=== PATIENT | male | born 1940 | race Caucasian/White ===

== ENCOUNTER 2020-04-16 23:55 | Inpatient (IN) | payer MEDICARE, SELFPAY ==
[2020-04-22 02:20] VITALS: BMI 23.7
[2020-04-23] VITALS (15 sets, daily range): BP systolic 105–174; BP diastolic 62–89; PULSE 80–94; RESP 16–24; TEMP 35.6–37.4; O2SAT 94–100
[2020-04-23 06:30] LABS: INTERNATIONAL NORM RATIO 1.5 (0.9-1.1); Prothrombin Time 17.3 SEC (10.8-13.0)
[2020-04-23 06:37] LABS: MANUAL DIFF FLAG NO
[2020-04-23 06:45] LABS: Basophils Percent Auto 0.1 % (0-2); Eosinophils Percent Auto 0.1 % (0-4); Hematocrit 22.8 % (42-52); Imm Gran Abs Auto 0.14 X10*3/uL (0.00-0.03); Imm Gran Pct Auto 0.9 % (0.0-0.4); Lymphocytes Absolute Auto 1.9 X10*3/uL (1.2-4.9); Lymphocytes Percent Auto 11.6 % (20-40); Mean Corpuscular HGB Conc 29.8 g/dl (31.0-36.0); Mean Corpuscular Hemoglobin 25.5 pg (27.0-33.0); Mean Corpuscular Volume 85.4 fL (80-98); Mean Platelet Volume 10.6 fL (9.4-12.4); Monocytes Absolute Auto 1.1 X10*3/uL (0.1-1.2); Monocytes Percent Auto 6.6 % (2-11); NRBC Pct Auto 0.2 /100WBC (0.0-0.2); Neutrophils Absolute Auto 13.2 X10*3/uL (2.0-8.3); Neutrophils Percent Auto 80.7 % (45-73); Platelet Count 269 X10*3/uL (160-400); Red Blood Count 2.67 X10*6/uL (4.60-5.80); Red Cell Distribution Width 16.5 % (11.0-16.0); White Blood Count 16.3 X10*3/uL (4.8-10.8)
[2020-04-23 07:20] LABS: Hemoglobin 6.8 g/dl (14.0-18.0)
[2020-04-23] MEDS: 0.9 % Sodium Chloride Flush 3 ML SYRINGE 2 ML IVFLUSH ×2 (08:10)
--- NOTE | 2020-04-23 08:38 | P.CDIC_ITS ---
CDI Concurrent Query Service Date: 04/24/20 Documentation Clarification: Please clarify if you are treating a proba ble/suspected/likely or confirmed: Pressure injury Stage 2 b/l buttocks/coccyx and middle scrotum poa Please specify if known or other other Provider Response: Other Other Diagnosis: other PLEASE DO NOT DELETE/MODIFY EXISTING CONTENT Additional information is needed in order to code to the highest accuracy and appropriate Severity of Illness (SOI). Please clarify the information noted below in your progress notes and discharge summary. Risk Factors/Clinical Indicators/Treatments Skin integrity noted open wound Stage 2 bilateral buttocks, coccyx and middle scrotum. FTT, cancer, anorexia, mild malnutrition. Reposition Q2H, air loss bed. CDS: Alexandra oHdge CCS, CDIS Contact Number: [phone] Please Review the information above and exercise your independent professional judgment in responding to the query. If you concur, pleas document in the PROGRESS NOTES and DISCHARGE SUMMARY. If you do not agree with the query, please document in the query above. Stage 2 pressure ulcer THIS QUERY IS PART OF THE PERMANENT MEDICAL RECORD
[2020-04-23] MEDS: Phytonadione (Vit K1) 10 MG in 0.9 % Sodium Chloride 50 ML 51 MG IV (11:13)
--- NOTE | 2020-04-23 13:03 | P.PNIM_ITS ---
Subjective Subjective Date of Service: 04/23/20 Interval History: Seen and examined this AM Denies abdominal pain Cardiovascular Cardiovascular: Denies chest pain and Denies dyspnea Respiratory Respiratory: Denies dyspnea Gastrointestinal Gastrointestinal: Denies abdominal pain Physical Exam Vital Signs and I&O and Narrative: Vital Signs and I&O: Vital Signs Temp 96.7 F L 04/23/20 12:19 Pulse 87 04/23/20 12:19 Resp 18 04/23/20 12:19 BP 124/68 04/23/20 12:19 Pulse Ox 98 04/23/20 12:19 Intake & Output 04/22/20 04/23/20 04/23/20 18:59 06:59 18:59 Intake Total 240 / 240 Output Total 150 / 150 Balance 90 / 90 Urine Output (Aver age ml/kg/hr) 0.19 0.19 Intake: Intake, Oral Kamryn unt 240 / 240 Output: Output, Urine Am ount 150 / 150 Other: Meal Refused No Breakfast % Eate n 50% Lunch % Eaten 50% Urine Color Yellow Body Mass Index 23.7 Const: General: cooperative, healthy appearing and no acute distress Eyes: Pupils: Equal, round and reactive pupils present Neck: Neck: Yes supple Chest: Chest palpation & inspection: normal inspection of the chest Resp: Effort & Inspection: normal respiratory effort and able to speak in complete sentences Auscultation: clear to auscultation bilaterally Cardio: Jugular venous distension: no JVD Rhythm: regular rhythm Heart sounds: S1 normal heart sound present and S2 normal heart sound present GI: Inspection: Yes normal to inspection Palpation (GI): Soft to palpation Auscultation: normal bowel sounds Skin: General skin exam: no rashes or lesions noted Neuro: Cranial nerves: Yes Equal, round and reactive pupils present Motor exam (neuro): Other motor observations present ( no motor deficit) Objective Data Current Medications Generic Name Dose Route Start Last Admin Trade Name Freq PRN Reason Stop Dose Admin Albuterol Sulfate 2.5 mg 04/23/20 00:01 Albuterol Sulfate (0.083%) 2.5 Mg/3 Ml Vial.Neb INHALE Q4H PRN Shortness of Breath Carbidopa/Levodopa 1 tab 04/23/20 09:00 04/23/20 08:09 Carbidopa/Levodopa 25/100 Tablet PO Not Given TID DION Donepezil HCl 10 mg 04/23/20 09:00 04/23/20 08:09 Donepezil Hcl 10 Mg Tablet PO Not Given DAILY [facility] Gabapentin 400 mg 04/23/20 09:00 04/23/20 08:09 Gabapentin 400 Mg Capsule PO Not Given TID [facility] Megestrol Acetate 400 mg 04/23/20 09:00 04/23/20 08:11 Megestrol Acetate 400 Mg/10 Ml Oral.Susp PO Not Given BID [facility] Oxycodone HCl 5 mg 04/23/20 00:01 Oxycodone Hcl Immed Release 5 Mg Tablet PO Q6H PRN Pain, Severe (Pain Scale 7-10) Sodium Chloride 2 ml 04/23/20 09:00 04/23/20 08:10 0.9 % Sodium Chloride Flush 3 Ml Syringe IVFLUSH 2 ml QSHIFT [facility] Administration Tamsulosin HCl 0.4 mg 04/23/20 17:00 Tamsulosin Hcl 0.4 Mg Capsule PO DAILY@1700 [facility] Labs CBC & Chem 7: 04/23/20 07:00 04/22/20 06:26 Labs: Laboratory Results - last 24 hr 04/16/20 04/17/20 04/20/20 20:56 05:59 06:23 MCV MCH MCHC RDW RDW Coeff of Tee Plt Count MPV Immature Gran % (Auto) Neut % (Auto) Lymph % (Auto) [place] % (Auto) Eos % (Auto) Baso % (Auto) Neut # (Auto) Lymph # (Auto) [place] # (Auto) Eos # (Auto) Baso # (Auto) Abs Immat Gran (auto) Absolute Lymphs (auto) Absolute Monos (auto) Absolute Eos (auto) Absolute Basos (auto) Absolute Nucleated RBC Nucleated RBC % (auto) Absolute Neutrophils Smear Tech's Comments PT INR Bicarbonate 25 Anion Gap 14 Estimated Creat Clear 68.5 Est GFR (Non-Af Amer) > 60 Random Glucose 110 Fasting Glucose Calcium 8.0 L Total Bilirubin 0.9 Direct Bilirubin 0.5 AST 41 H ALT 9 Alkaline Phosphatase 453 H Lactate Dehydrogenase 398 H Total Protein 5.6 L Albumin 2.5 L CA 19-9 Antigen 1006 H CSF Herpes I DNA (PCR) Not Detected CSF Herpes II DNA (PCR) Not Detected Stool Occult Blood Body Source CSF Blood Type Antibody Screen Crossmatch 09/04/20/20 04/20/20 06:23 06:23 19:04 MCV 87.0 MCH 25.4 L MCHC 29.2 L RDW RDW Coeff of Tee 16.1 H Plt Count 326 MPV 9.7 Immature Gran % (Auto) 0.9 H Neut % (Auto) 77.9 H Lymph % (Auto) 12.4 L [place] % (Auto) 8.6 Eos % (Auto) 0.0 Baso % (Auto) 0.2 Neut # (Auto) Lymph # (Auto) [place] # (Auto) Eos # (Auto) Baso # (Auto) Abs Immat Gran (auto) 0.17 H Absolute Lymphs (auto) 2.4 Absolute Monos (auto) 1.7 H Absolute Eos (auto) 0.0 Absolute Basos (auto) 0.0 Absolute Nucleated RBC 0.020 H Nucleated RBC % (auto) 0.1 Absolute Neutrophils 15.1 H Smear Tech's Comments VERIFIED PT 17.9 H INR 1.5 H Bicarbonate Anion Gap Estimated Creat Clear Est GFR (Non-Af Amer) Random Glucose Fasting Glucose Calcium Total Bilirubin Direct Bilirubin AST ALT Alkaline Phosphatase Lactate Dehydrogenase Total Protein Albumin CA 19-9 Antigen CSF Herpes I DNA (PCR) CSF Herpes II DNA (PCR) Stool Occult Blood POS H Body Source Blood Type Antibody Screen Crossmatch 04/21/20 04/22/20 04/22/20 15:42 06:26 06:26 MCV 86.4 85.3 MCH 25.4 L 25.6 L MCHC 29.4 L 30.0 L RDW RDW Coeff of Tee 16.3 H 16.4 H Plt Count 319 284 MPV 9.8 10.3 Immature Gran % (Auto) 1.0 H Neut % (Auto) 83.0 H Lymph % (Auto) 9.6 L [place] % (Auto) 6.3 Eos % (Auto) 0.0 Baso % (Auto) 0.1 Neut # (Auto) Lymph # (Auto) [place] # (Auto) Eos # (Auto) Baso # (Auto) Abs Immat Gran (auto) 0.20 H Absolute Lymphs (auto) 1.9 Absolute Monos (auto) 1.3 H Absolute Eos (auto) 0.0 Absolute Basos (auto) 0.0 Absolute Nucleated RBC 0.030 H 0.020 H Nucleated RBC % (auto) 0.2 0.1 Absolute Neutrophils 16.6 H Smear Tech's Comments PT INR Bicarbonate 26 Anion Gap 13 Estimated Creat Clear 79.0 Est GFR (Non-Af Amer) > 60 Random Glucose Fasting Glucose 128 H Calcium 8.0 L Total Bilirubin Direct Bilirubin AST ALT Alkaline Phosphatase Lactate Dehydrogenase Total Protein Albumin CA 19-9 Antigen CSF Herpes I DNA (PCR) CSF Herpes II DNA (PCR) Stool Occult Blood Body Source Blood Type Antibody Screen Crossmatch 04/23/20 04/23/20 04/23/20 05:56 05:56 07:00 MCV 85.4 Not Rcvd MCH 25.5 L Not Rcvd MCHC 29.8 L Not Rcvd RDW 16.5 H RDW Coeff of Tee Not Rcvd Plt Count 269 Not Rcvd MPV 10.6 Not Rcvd Immature Gran % (Auto) 0.9 H Neut % (Auto) 80.7 H Lymph % (Auto) 11.6 L [place] % (Auto) 6.6 Eos % (Auto) 0.1 Baso % (Auto) 0.1 Neut # (Auto) 13.2 H Lymph # (Auto) 1.9 [place] # (Auto) 1.1 Eos # (Auto) 0.0 Baso # (Auto) 0.0 Abs Immat Gran (auto) 0.14 H Absolute Lymphs (auto) Absolute Monos (auto) Absolute Eos (auto) Absolute Basos (auto) Absolute Nucleated RBC 0.030 H Not Rcvd Nucleated RBC % (auto) 0.2 Not Rcvd Absolute Neutrophils Smear Tech's Comments PT 17.3 H INR 1.5 H Bicarbonate Anion Gap Estimated Creat Clear Est GFR (Non-Af Amer) Random Glucose Fasting Glucose Calcium Total Bilirubin Direct Bilirubin AST ALT Alkaline Phosphatase Lactate Dehydrogenase Total Protein Albumin CA 19-9 Antigen CSF Herpes I DNA (PCR) CSF Herpes II DNA (PCR) Stool Occult Blood Body Source Blood Type Antibody Screen Crossmatch 04/23/20 04/23/20 07:00 11:15 MCV MCH MCHC RDW RDW Coeff of Tee Plt Count MPV Immature Gran % (Auto) Neut % (Auto) Lymph % (Auto) [place] % (Auto) Eos % (Auto) Baso % (Auto) Neut # (Auto) Lymph # (Auto) [place] # (Auto) Eos # (Auto) Baso # (Auto) Abs Immat Gran (auto) Absolute Lymphs (auto) Absolute Monos (auto) Absolute Eos (auto) Absolute Basos (auto) Absolute Nucleated RBC Nucleated RBC % (auto) Absolute Neutrophils Smear Tech's Comments PT Not Rcvd INR Not Rcvd Bicarbonate Anion Gap Estimated Creat Clear Est GFR (Non-Af Amer) Random Glucose Fasting Glucose Calcium Total Bilirubin Direct Bilirubin AST ALT Alkaline Phosphatase Lactate Dehydrogenase Total Protein Albumin CA 19-9 Antigen CSF Herpes I DNA (PCR) CSF Herpes II DNA (PCR) Stool Occult Blood Body Source Blood Type A Positive Antibody Screen NEGATIVE Crossmatch See Detail Progress Note: A&P (1) Liver mass: Status: Acute Assessment and Plan: 80 yo M who has been admitted several times over the last month or so to [facility] for multiple issues. He was initially admitted on 04/01/2020 after a fall and slurred speech. During that admisison he was worked up for his neurological findings and was initiated on Sinemet as his symptoms were felt to be Parkinsonism. He was discharged on 04/03/2020 only to return in less than 12 hours from SNF for respiratory symptoms and fever. During that admission he was treated for aspiration pneumonia. He also had abnormal LFTs during that admission and underwent work up with an ultrasound which showed no cholelithiasis but concern over acalculous cholecystitis was raised and he subsequently was evaluated by General surgery and felt that he unlikely had acalculous cholecystitis. His LFTs were downtrending and were attributed to his acute infection. He now presents with generalized weakness and increase leukocytosis. His work up in the ED which included an LP (not suggestive of bacterial meningitis ) and CT abd/pelvis with contrast which showed a liver mass vs abscess of 4.5 cm. He was admitted for further work up. 1. 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 CT chest shows no evidence of mets. Undergoing EGD today 2. Abnormal LFTs likely from neoplasic process--LFTS are generally low, other high ALKP 3. Anemia-- transfuse 2 units prbcs check h/h probably chronic blood loss 4. HyperK resolved monitor 5. History of recently diagnosed Parkinsons continue Sinemet 6. Dementia Aricept 7. Leukocytosis--likely reactive 8. Mild Protein calory malnutrition/anorexia supplements
[2020-04-23] MEDS: Morphine Sulfate 2 MG/ML CARTRIDGE IVPUSH (13:42)
--- NOTE | 2020-04-23 14:30 | HO.ANESPROP2 ---
[facility] Past Medical History Medical History (Updated 04/23/20 @ 14:26 by Sumaya Lomax RN) Anemia Anorexia Dementia Hyperkalemia Leukocytosis Malnutrition Parkinson disease Meds Allergies Allergy/AdvReac Type Severity Reaction Status Date / Time No Known Allergies Allergy Unknown UNKNOWN Unverified 04/09/20 15:03 [NO KNOWN ALLERGIES] Home Medications Medication Instructions Recorded Confirmed Type acetaminophen 650 mg PO Q4H PRN 04/22/20 04/22/20 History albuterol sulfate 2.5 mg INHALATION Q4H PRN 04/22/20 04/22/20 History aspirin 81 mg PO 04/22/20 History quhgxqnzqm-xhnmffxmkucca-wcfy 1 tab PO DAILY PRN 04/22/20 04/22/20 History [Fioricet] carbidopa-levodopa 1 tab PO TID 04/22/20 04/22/20 History cholecalciferol (vitamin D3) 50 mcg PO DAILY 04/22/20 04/22/20 History diazepam 5 mg PO TID PRN 04/22/20 04/22/20 History diclofenac sodium [Voltaren] 1 ea TOPICAL TID PRN 04/22/20 04/22/20 History donepezil 10 mg PO DAILY 04/22/20 04/22/20 History famotidine 40 mg PO BEDTIME 04/22/20 04/22/20 History gabapentin 400 mg PO TID 04/22/20 04/22/20 History magnesium hydroxide [Milk of 400 mg PO BEDTIME PRN 04/22/20 04/22/20 History Magnesia] oxycodone-acetaminophen [Percocet] 1 tab PO Q6H PRN 04/22/20 04/22/20 History rosuvastatin 40 mg PO DAILY 04/22/20 04/22/20 History tamsulosin 0.4 mg PO DAILY 04/22/20 04/22/20 History Exam Exam Date and Time: April 23, 2020 1430 Height,Weight and Vital Signs: Height 5 ft 6 in Weight 66.678 kg Last Vital Signs Temp 98.1 F 04/23/20 14:09 Pulse 93 04/23/20 14:09 Resp 18 04/23/20 14:09 BP 110/65 04/23/20 14:09 Pulse Ox 98 04/23/20 12:19 Pertinent Lab Results Pertinent Lab Results: Laboratory Tests 04/16/20 04/16/20 04/16/20 18:30 18:30 18:30 WBC 18.9 H RBC 3.53 L D Hgb 9.3 L Hct 31.4 L D MCV 89.0 MCH 26.3 L MCHC 29.6 L RDW RDW Coeff of Tee 15.9 Plt Count 554 H MPV 9.3 L Immature Gran % (Auto) 0.8 H Neut % (Auto) 82.0 H Lymph % (Auto) 8.7 L Maverick % (Auto) 8.2 Eos % (Auto) 0.1 Baso % (Auto) 0.2 Neut # (Auto) Lymph # (Auto) Maverick # (Auto) Eos # (Auto) Baso # (Auto) Abs Immat Gran (auto) 0.15 H Absolute Lymphs (auto) 1.6 Absolute Monos (auto) 1.6 H Absolute Eos (auto) 0.0 Absolute Basos (auto) 0.0 Absolute Nucleated RBC 0.000 Nucleated RBC % (auto) 0.0 Absolute Neutrophils 15.5 H Smear Tech's Comments VERIFIED PT INR Sodium Cancelled Potassium Cancelled Chloride Cancelled Bicarbonate Cancelled Anion Gap Cancelled BUN Cancelled Creatinine Cancelled Estimated Creat Clear Cancelled Est GFR (Non-Af Amer) Cancelled Random Glucose Cancelled Fasting Glucose Lactic Acid 1.7 Calcium Magnesium Cancelled Total Bilirubin Cancelled Direct Bilirubin Cancelled AST Cancelled ALT Cancelled Alkaline Phosphatase Cancelled Lactate Dehydrogenase Total Protein Cancelled Albumin Cancelled Lipase Cancelled Carcinoembryonic Ag CA 19-9 Antigen Urine Color Urine Appearance Urine pH Ur Specific [place] Urine Protein Urine Glucose (UA) Urine Ketones Urine Blood Urine Nitrite Urine WBC (Auto) Urine RBC Urine WBC Ur Epithelial Cells Urine Crystals Urine Bacteria Urine Casts CSF Tube Number CSF Volume CSF Appearance CSF Color CSF WBC CSF RBC CSF Glucose CSF Total Protein CSF Herpes I DNA (PCR) CSF Herpes II DNA (PCR) Stool Occult Blood Body Source Blood Type Antibody Screen Crossmatch 04/16/20 04/16/20 04/16/20 18:30 19:59 19:59 WBC RBC Hgb Hct MCV MCH MCHC RDW RDW Coeff of Tee Plt Count MPV Immature Gran % (Auto) Neut % (Auto) Lymph % (Auto) Maverick % (Auto) Eos % (Auto) Baso % (Auto) Neut # (Auto) Lymph # (Auto) Maverick # (Auto) Eos # (Auto) Baso # (Auto) Abs Immat Gran (auto) Absolute Lymphs (auto) Absolute Monos (auto) Absolute Eos (auto) Absolute Basos (auto) Absolute Nucleated RBC Nucleated RBC % (auto) Absolute Neutrophils Smear Tech's Comments PT 24.4 H D INR 2.0 H Sodium 141 Potassium 5.3 H D Chloride 102 Bicarbonate 29 Anion Gap 15 BUN 15 D Creatinine 0.94 Estimated Creat Clear 54.6 Est GFR (Non-Af Amer) > 60 Random Glucose 116 H Fasting Glucose Lactic Acid Calcium Magnesium 2.3 Total Bilirubin 0.6 Direct Bilirubin 0.2 AST 54 H ALT 11 Alkaline Phosphatase 452 H D Lactate Dehydrogenase Total Protein 5.8 L Albumin 2.5 L Lipase 45 Carcinoembryonic Ag CA 19-9 Antigen Urine Color YELLOW Urine Appearance HAZY Urine pH 6.0 Ur Specific [place] >= 1.030 H Urine Protein 2+ H Urine Glucose (UA) NEG Urine Ketones NEG Urine Blood 3+ H Urine Nitrite NEG Urine WBC (Auto) NEG Urine RBC 30-49 H Urine WBC 0-2 Ur Epithelial Cells 1+ Urine Crystals URATE AMORPH 1+ Urine Bacteria NONE Urine Casts GRANULAR 15-29 CSF Tube Number CSF Volume CSF Appearance CSF Color CSF WBC CSF RBC CSF Glucose CSF Total Protein CSF Herpes I DNA (PCR) CSF Herpes II DNA (PCR) Stool Occult Blood Body Source Blood Type Antibody Screen Crossmatch 04/16/20 04/16/20 04/16/20 20:56 20:56 20:56 WBC RBC Hgb Hct MCV MCH MCHC RDW RDW Coeff of Tee Plt Count MPV Immature Gran % (Auto) Neut % (Auto) Lymph % (Auto) Maverick % (Auto) Eos % (Auto) Baso % (Auto) Neut # (Auto) Lymph # (Auto) Maverick # (Auto) Eos # (Auto) Baso # (Auto) Abs Immat Gran (auto) Absolute Lymphs (auto) Absolute Monos (auto) Absolute Eos (auto) Absolute Basos (auto) Absolute Nucleated RBC Nucleated RBC % (auto) Absolute Neutrophils Smear Tech's Comments PT INR Sodium Potassium Chloride Bicarbonate Anion Gap BUN Creatinine Estimated Creat Clear Est GFR (Non-Af Amer) Random Glucose Fasting Glucose Lactic Acid Calcium Magnesium Total Bilirubin Direct Bilirubin AST ALT Alkaline Phosphatase Lactate Dehydrogenase Total Protein Albumin Lipase Carcinoembryonic Ag CA 19-9 Antigen Urine Color Urine Appearance Urine pH Ur Specific [place] Urine Protein Urine Glucose (UA) Urine Ketones Urine Blood Urine Nitrite Urine WBC (Auto) Urine RBC Urine WBC Ur Epithelial Cells Urine Crystals Urine Bacteria Urine Casts CSF Tube Number 1 4 4 CSF Volume 0.5 1.0 CSF Appearance CLEAR CLEAR CLEAR, COLORLESS CSF Color COLORLESS COLORLESS CSF WBC 1 0 CSF RBC 391 5 CSF Glucose 78 CSF Total Protein 19.0 CSF Herpes I DNA (PCR) CSF Herpes II DNA (PCR) Stool Occult Blood Body Source Blood Type Antibody Screen Crossmatch 04/16/20 04/17/20 04/17/20 20:56 05:59 05:59 WBC 13.5 H RBC 2.88 L Hgb 7.5 L Hct 25.8 L MCV 89.6 MCH 26.0 L MCHC 29.1 L RDW RDW Coeff of Tee 16.0 Plt Count 398 D MPV 9.4 Immature Gran % (Auto) 0.9 H Neut % (Auto) 76.7 H Lymph % (Auto) 14.1 L Maverick % (Auto) 8.1 Eos % (Auto) 0.0 Baso % (Auto) 0.2 Neut # (Auto) Lymph # (Auto) Maverick # (Auto) Eos # (Auto) Baso # (Auto) Abs Immat Gran (auto) 0.12 H Absolute Lymphs (auto) 1.9 Absolute Monos (auto) 1.1 Absolute Eos (auto) 0.0 Absolute Basos (auto) 0.0 Absolute Nucleated RBC 0.000 Nucleated RBC % (auto) 0.0 Absolute Neutrophils 10.3 H Smear Tech's Comments PT INR Sodium 142 Potassium 4.2 D Chloride 106 Bicarbonate 28 Anion Gap 12 BUN 13 Creatinine 0.79 Estimated Creat Clear 65.0 Est GFR (Non-Af Amer) > 60 Random Glucose Fasting Glucose 106 H Lactic Acid Calcium 7.8 L Magnesium Total Bilirubin Direct Bilirubin AST ALT Alkaline Phosphatase Lactate Dehydrogenase Total Protein Albumin Lipase Carcinoembryonic Ag CA 19-9 Antigen Urine Color Urine Appearance Urine pH Ur Specific [place] Urine Protein Urine Glucose (UA) Urine Ketones Urine Blood Urine Nitrite Urine WBC (Auto) Urine RBC Urine WBC Ur Epithelial Cells Urine Crystals Urine Bacteria Urine Casts CSF Tube Number CSF Volume CSF Appearance CSF Color CSF WBC CSF RBC CSF Glucose CSF Total Protein CSF Herpes I DNA (PCR) Not Detected CSF Herpes II DNA (PCR) Not Detected Stool Occult Blood Body Source CSF Blood Type Antibody Screen Crossmatch 04/17/20 04/17/20 04/17/20 05:59 10:30 10:30 WBC 13.5 H RBC 2.93 L Hgb 7.7 L Hct 26.2 L MCV 89.4 MCH 26.3 L MCHC 29.4 L RDW RDW Coeff of Tee 15.8 Plt Count 409 H MPV 9.6 Immature Gran % (Auto) Neut % (Auto) Lymph % (Auto) Maverick % (Auto) Eos % (Auto) Baso % (Auto) Neut # (Auto) Lymph # (Auto) Maverick # (Auto) Eos # (Auto) Baso # (Auto) Abs Immat Gran (auto) Absolute Lymphs (auto) Absolute Monos (auto) Absolute Eos (auto) Absolute Basos (auto) Absolute Nucleated RBC 0.000 Nucleated RBC % (auto) 0.0 Absolute Neutrophils Smear Tech's Comments PT 28.3 H INR 2.4 H Sodium Potassium Chloride Bicarbonate Anion Gap BUN Creatinine Estimated Creat Clear Est GFR (Non-Af Amer) Random Glucose Fasting Glucose Lactic Acid Calcium Magnesium Total Bilirubin Direct Bilirubin AST ALT Alkaline Phosphatase Lactate Dehydrogenase Total Protein Albumin Lipase Carcinoembryonic Ag CA 19-9 Antigen 1006 H Urine Color Urine Appearance Urine pH Ur Specific [place] Urine Protein Urine Glucose (UA) Urine Ketones Urine Blood Urine Nitrite Urine WBC (Auto) Urine RBC Urine WBC Ur Epithelial Cells Urine Crystals Urine Bacteria Urine Casts CSF Tube Number CSF Volume CSF Appearance CSF Color CSF WBC CSF RBC CSF Glucose CSF Total Protein CSF Herpes I DNA (PCR) CSF Herpes II DNA (PCR) Stool Occult Blood Body Source Blood Type Antibody Screen Crossmatch 04/18/20 04/18/20 04/18/20 06:56 06:56 06:56 WBC 15.1 H RBC 3.09 L Hgb 8.2 L Hct 27.4 L MCV 88.7 MCH 26.5 L MCHC 29.9 L RDW RDW Coeff of Tee 16.0 Plt Count 369 MPV 9.5 Immature Gran % (Auto) 1.3 H Neut % (Auto) 79.2 H Lymph % (Auto) 10.7 L Maverick % (Auto) 8.5 Eos % (Auto) 0.1 Baso % (Auto) 0.2 Neut # (Auto) Lymph # (Auto) Maverick # (Auto) Eos # (Auto) Baso # (Auto) Abs Immat Gran (auto) 0.19 H Absolute Lymphs (auto) 1.6 Absolute Monos (auto) 1.3 H Absolute Eos (auto) 0.0 Absolute Basos (auto) 0.0 Absolute Nucleated RBC 0.000 Nucleated RBC % (auto) 0.0 Absolute Neutrophils 11.9 H Smear Tech's Comments PT 18.4 H D INR 1.5 H Sodium 140 Potassium 3.5 Chloride 104 Bicarbonate 26 Anion Gap 14 BUN 9 Creatinine 0.81 Estimated Creat Clear 63.4 Est GFR (Non-Af Amer) > 60 Random Glucose 109 Fasting Glucose Lactic Acid Calcium 8.0 L Magnesium Total Bilirubin 0.7 Direct Bilirubin 0.4 AST 44 H ALT 8 Alkaline Phosphatase 441 H Lactate Dehydrogenase Total Protein 5.4 L Albumin 2.5 L Lipase Carcinoembryonic Ag 997.80 CA 19-9 Antigen Urine Color Urine Appearance Urine pH Ur Specific [place] Urine Protein Urine Glucose (UA) Urine Ketones Urine Blood Urine Nitrite Urine WBC (Auto) Urine RBC Urine WBC Ur Epithelial Cells Urine Crystals Urine Bacteria Urine Casts CSF Tube Number CSF Volume CSF Appearance CSF Color CSF WBC CSF RBC CSF Glucose CSF Total Protein CSF Herpes I DNA (PCR) CSF Herpes II DNA (PCR) Stool Occult Blood Body Source Blood Type Antibody Screen Crossmatch 04/20/20 04/20/20 04/20/20 06:23 06:23 06:23 WBC 19.4 H RBC 3.07 L Hgb 7.8 L Hct 26.7 L MCV 87.0 MCH 25.4 L MCHC 29.2 L RDW RDW Coeff of Tee 16.1 H Plt Count 326 MPV 9.7 Immature Gran % (Auto) 0.9 H Neut % (Auto) 77.9 H Lymph % (Auto) 12.4 L Maverick % (Auto) 8.6 Eos % (Auto) 0.0 Baso % (Auto) 0.2 Neut # (Auto) Lymph # (Auto) Maverick # (Auto) Eos # (Auto) Baso # (Auto) Abs Immat Gran (auto) 0.17 H Absolute Lymphs (auto) 2.4 Absolute Monos (auto) 1.7 H Absolute Eos (auto) 0.0 Absolute Basos (auto) 0.0 Absolute Nucleated RBC 0.020 H Nucleated RBC % (auto) 0.1 Absolute Neutrophils 15.1 H Smear Tech's Comments VERIFIED PT 17.9 H INR 1.5 H Sodium 139 Potassium 3.7 Chloride 104 Bicarbonate 25 Anion Gap 14 BUN 10 Creatinine 0.75 Estimated Creat Clear 68.5 Est GFR (Non-Af Amer) > 60 Random Glucose 110 Fasting Glucose Lactic Acid Calcium 8.0 L Magnesium Total Bilirubin 0.9 Direct Bilirubin 0.5 AST 41 H ALT 9 Alkaline Phosphatase 453 H Lactate Dehydrogenase 398 H Total Protein 5.6 L Albumin 2.5 L Lipase Carcinoembryonic Ag CA 19-9 Antigen Urine Color Urine Appearance Urine pH Ur Specific [place] Urine Protein Urine Glucose (UA) Urine Ketones Urine Blood Urine Nitrite Urine WBC (Auto) Urine RBC Urine WBC Ur Epithelial Cells Urine Crystals Urine Bacteria Urine Casts CSF Tube Number CSF Volume CSF Appearance CSF Color CSF WBC CSF RBC CSF Glucose CSF Total Protein CSF Herpes I DNA (PCR) CSF Herpes II DNA (PCR) Stool Occult Blood Body Source Blood Type Antibody Screen Crossmatch 04/20/20 04/21/20 04/22/20 19:04 15:42 06:26 WBC 20.0 H RBC 2.87 L Hgb 7.3 L Hct 24.8 L MCV 86.4 MCH 25.4 L MCHC 29.4 L RDW RDW Coeff of Tee 16.3 H Plt Count 319 MPV 9.8 Immature Gran % (Auto) 1.0 H Neut % (Auto) 83.0 H Lymph % (Auto) 9.6 L Maverick % (Auto) 6.3 Eos % (Auto) 0.0 Baso % (Auto) 0.1 Neut # (Auto) Lymph # (Auto) Maverick # (Auto) Eos # (Auto) Baso # (Auto) Abs Immat Gran (auto) 0.20 H Absolute Lymphs (auto) 1.9 Absolute Monos (auto) 1.3 H Absolute Eos (auto) 0.0 Absolute Basos (auto) 0.0 Absolute Nucleated RBC 0.030 H Nucleated RBC % (auto) 0.2 Absolute Neutrophils 16.6 H Smear Tech's Comments PT INR Sodium 141 Potassium 3.3 Chloride 105 Bicarbonate 26 Anion Gap 13 BUN 15 Creatinine 0.65 Estimated Creat Clear 79.0 Est GFR (Non-Af Amer) > 60 Random Glucose Fasting Glucose 128 H Lactic Acid Calcium 8.0 L Magnesium Total Bilirubin Direct Bilirubin AST ALT Alkaline Phosphatase Lactate Dehydrogenase Total Protein Albumin Lipase Carcinoembryonic Ag CA 19-9 Antigen Urine Color Urine Appearance Urine pH Ur Specific [place] Urine Protein Urine Glucose (UA) Urine Ketones Urine Blood Urine Nitrite Urine WBC (Auto) Urine RBC Urine WBC Ur Epithelial Cells Urine Crystals Urine Bacteria Urine Casts CSF Tube Number CSF Volume CSF Appearance CSF Color CSF WBC CSF RBC CSF Glucose CSF Total Protein CSF Herpes I DNA (PCR) CSF Herpes II DNA (PCR) Stool Occult Blood POS H Body Source Blood Type Antibody Screen Crossmatch 04/22/20 04/23/20 04/23/20 06:26 05:56 05:56 WBC 18.2 H 16.3 H RBC 2.85 L 2.67 L Hgb 7.3 L 6.8 L* Hct 24.3 L 22.8 L MCV 85.3 85.4 MCH 25.6 L 25.5 L MCHC 30.0 L 29.8 L RDW 16.5 H RDW Coeff of Tee 16.4 H Plt Count 284 269 MPV 10.3 10.6 Immature Gran % (Auto) 0.9 H Neut % (Auto) 80.7 H Lymph % (Auto) 11.6 L Maverick % (Auto) 6.6 Eos % (Auto) 0.1 Baso % (Auto) 0.1 Neut # (Auto) 13.2 H Lymph # (Auto) 1.9 Maverick # (Auto) 1.1 Eos # (Auto) 0.0 Baso # (Auto) 0.0 Abs Immat Gran (auto) 0.14 H Absolute Lymphs (auto) Absolute Monos (auto) Absolute Eos (auto) Absolute Basos (auto) Absolute Nucleated RBC 0.020 H 0.030 H Nucleated RBC % (auto) 0.1 0.2 Absolute Neutrophils Smear Tech's Comments PT 17.3 H INR 1.5 H Sodium Potassium Chloride Bicarbonate Anion Gap BUN Creatinine Estimated Creat Clear Est GFR (Non-Af Amer) Random Glucose Fasting Glucose Lactic Acid Calcium Magnesium Total Bilirubin Direct Bilirubin AST ALT Alkaline Phosphatase Lactate Dehydrogenase Total Protein Albumin Lipase Carcinoembryonic Ag CA 19-9 Antigen Urine Color Urine Appearance Urine pH Ur Specific [place] Urine Protein Urine Glucose (UA) Urine Ketones Urine Blood Urine Nitrite Urine WBC (Auto) Urine RBC Urine WBC Ur Epithelial Cells Urine Crystals Urine Bacteria Urine Casts CSF Tube Number CSF Volume CSF Appearance CSF Color CSF WBC CSF RBC CSF Glucose CSF Total Protein CSF Herpes I DNA (PCR) CSF Herpes II DNA (PCR) Stool Occult Blood Body Source Blood Type Antibody Screen Crossmatch 04/23/20 04/23/20 04/23/20 07:00 07:00 11:15 WBC Not Rcvd RBC Not Rcvd Hgb Not Rcvd Hct Not Rcvd MCV Not Rcvd MCH Not Rcvd MCHC Not Rcvd RDW RDW Coeff of Tee Not Rcvd Plt Count Not Rcvd MPV Not Rcvd Immature Gran % (Auto) Neut % (Auto) Lymph % (Auto) Maverick % (Auto) Eos % (Auto) Baso % (Auto) Neut # (Auto) Lymph # (Auto) Maverick # (Auto) Eos # (Auto) Baso # (Auto) Abs Immat Gran (auto) Absolute Lymphs (auto) Absolute Monos (auto) Absolute Eos (auto) Absolute Basos (auto) Absolute Nucleated RBC Not Rcvd Nucleated RBC % (auto) Not Rcvd Absolute Neutrophils Smear Tech's Comments PT Not Rcvd INR Not Rcvd Sodium Potassium Chloride Bicarbonate Anion Gap BUN Creatinine Estimated Creat Clear Est GFR (Non-Af Amer) Random Glucose Fasting Glucose Lactic Acid Calcium Magnesium Total Bilirubin Direct Bilirubin AST ALT Alkaline Phosphatase Lactate Dehydrogenase Total Protein Albumin Lipase Carcinoembryonic Ag CA 19-9 Antigen Urine Color Urine Appearance Urine pH Ur Specific [place] Urine Protein Urine Glucose (UA) Urine Ketones Urine Blood Urine Nitrite Urine WBC (Auto) Urine RBC Urine WBC Ur Epithelial Cells Urine Crystals Urine Bacteria Urine Casts CSF Tube Number CSF Volume CSF Appearance CSF Color CSF WBC CSF RBC CSF Glucose CSF Total Protein CSF Herpes I DNA (PCR) CSF Herpes II DNA (PCR) Stool Occult Blood Body Source Blood Type A Positive Antibody Screen NEGATIVE Crossmatch See Detail Airway Neck ROM: Full Heart: RRR Lungs: CTA BL
[2020-04-23] MEDS: Lactated Ringers 1,000 ML 50 ML IVCONT ×2 (15:01→20:16)
--- NOTE | 2020-04-23 15:44 | PM.OP ---
Brief Operative Note Date of procedure: 04/23/20 Pre-op diagnosis: Metatstatic adenocarcinoma Post-op diagnosis: other (Erosive gastritis, duodenitis, hiatal hernia, erosive esophagitis) Procedure: EGD with biopsy Anesthesia: HENRI Surgeon: Karan Lorenzo Pathology: none sent (Gastric antrum) Condition: stable Disposition: PACU
--- NOTE | 2020-04-23 19:44 | PC.NURSE ---
first unit of blood completed infusion in surgery.
--- NOTE | 2020-04-23 20:11 | PC.NURSE ---
P-QUESTIONED DR. SHEA ON HOW MANY UNITS OF PRBC PATIENT SHOULD BE TRANSFUSED WITH I-STAT HH WAS ORDERED E-PRIMARY RN NOTIFIED,BASED ON HH RESULTS, WILL DECIDE
[2020-04-23] MEDS: Carbidopa/Levodopa 25/100 TABLET 1 TAB PO (20:12)
[2020-04-23] MEDS: Gabapentin 400 MG CAPSULE PO (20:12)
[2020-04-23] MEDS: Tamsulosin HCL 0.4 MG CAPSULE PO (20:12)
[2020-04-23] MEDS: Megestrol Acetate 400 MG/10 ML ORAL.SUSP PO (20:12)
[2020-04-23 20:39] LABS: Hematocrit 28.2 % (42-52); Hemoglobin 8.8 g/dl (14.0-18.0)
[2020-04-24] VITALS (11 sets, daily range): BP systolic 118–145; BP diastolic 66–91; PULSE 66–99; RESP 16–20; TEMP 36.1–37.8; O2SAT 94–100
[2020-04-24] MEDS: 0.9 % Sodium Chloride Flush 3 ML SYRINGE 2 ML IVFLUSH (00:42)
--- NOTE | 2020-04-24 02:43 | OP_ITS ---
SURGEON: Karan Lorenzo MD INDICATIONS: The patient presents for evaluation of metastatic adenocarcinoma of unknown primary. Full consent has been obtained from the patient's daughter and his , including risks of bleeding and perforation. PREOPERATIVE DIAGNOSIS: Metastatic adenocarcinoma of unknown primary. POSTOPERATIVE DIAGNOSIS: PROCEDURE PERFORMED: Esophagogastroduodenoscopy with biopsies. ESTIMATED BLOOD LOSS: COMPLICATIONS: ANESTHESIA: Monitored anesthesia care. ASSISTANTS: SPECIMENS: POSTOPERATIVE DIAGNOSES: Metastatic adenocarcinoma of unknown primary, erosive gastritis, duodenitis, hiatal hernia, and erosive esophagitis. DESCRIPTION OF PROCEDURE: The patient was placed in the left lateral decubitus position. The Olympus video gastroscope was passed in the posterior oropharynx and upper esophagus under direct vision. The scope was passed slowly into the distal esophagus. The gastroesophageal junction appeared at 35 cm. Extending from this to approximately 25 cm were areas of erosive esophagitis with some overlying exudate, but no sign of any Carly nor ulceration. There was no mass. The scope was entered into the stomach and there was a small hiatal hernia. The scope was advanced to pylorus and duodenum cannulated to the descending portion. There was some mild duodenitis in the duodenal bulb, but no evidence of any ulceration or mass. The scope was withdrawn back in the stomach. The gastric antrum had some areas of edema and erosions, but no ulceration, mass, nor any other abnormalities. There was good peristalsis. The scope was retroflexed visualizing the proximal stomach carefully, which appeared normal, without any sign of mass or ulceration. Scope was straightened and biopsies were obtained from the gastric antrum. Scope was withdrawn back to the esophagus. Other than the esophagitis, there were no other abnormalities noted. The scope was withdrawn from the patient. He tolerated the procedure well and was returned to recovery area in stable condition. IMPRESSION: 1. Erosive gastritis, status post biopsy. 2. Duodenitis. 3. Hiatal hernia. 4. Erosive esophagitis. PLAN: The results of biopsy will be checked. He will start omeprazole 20 mg b.i.d. As I did review with his daughter on the phone prior to the procedure, I do not think he would be a good candidate for colonoscopy both in regard to handling the bowel prep and the procedure itself, given his overall condition. Further workup will be as per the Oncology service. His diet will be advanced. This has been discussed with his family again. MD IVETT Andrew/GRIFFIN / [phone]
[2020-04-24 06:26] LABS: MANUAL DIFF FLAG NO
[2020-04-24 06:30] LABS: Basophils Percent Auto 0.1 % (0-2); Hematocrit 27.4 % (42-52); Hemoglobin 8.7 g/dl (14.0-18.0); Imm Gran Abs Auto 0.36 X10*3/uL (0.00-0.03); Imm Gran Pct Auto 2.1 % (0.0-0.4); Lymphocytes Absolute Auto 1.7 X10*3/uL (1.2-4.9); Lymphocytes Percent Auto 9.8 % (20-40); Mean Corpuscular HGB Conc 31.8 g/dl (31.0-36.0); Mean Corpuscular Hemoglobin 26.6 pg (27.0-33.0); Mean Corpuscular Volume 83.8 fL (80-98); Mean Platelet Volume 10.8 fL (9.4-12.4); Monocytes Absolute Auto 0.9 X10*3/uL (0.1-1.2); Monocytes Percent Auto 5.1 % (2-11); Neutrophils Percent Auto 82.9 % (45-73); Platelet Count 219 X10*3/uL (160-400); Red Blood Count 3.27 X10*6/uL (4.60-5.80); Red Cell Distribution Width 16.2 % (11.0-16.0); White Blood Count 16.9 X10*3/uL (4.8-10.8)
[2020-04-24] MEDS: Omeprazole 20 MG CAPSULE.DR PO ×2 (06:49→18:07)
[2020-04-24 06:55] LABS: NRBC Pct Auto 1.3 /100WBC (0.0-0.2)
[2020-04-24 07:06] LABS: Anion Gap 15 (12-20); Blood Urea Nitrogen 19 mg/dL (9-16); Calcium 7.7 mg/dL (8.4-10.2); Carbon Dioxide 25 mmol/L (22-29); Chloride 105 mmol/L (96-108); Creatinine Clr Calc Pharmacy 85.6; Estimated Glomerular Filt Rate > 60; Glucose Fasting 120 mg/dL (60-99); Potassium 3.7 mmol/l (3.3-5.1); Sodium 141 mmol/L (135-145)
[2020-04-24] MEDS: Megestrol Acetate 400 MG/10 ML ORAL.SUSP PO (11:08)
[2020-04-24] MEDS: Gabapentin 400 MG CAPSULE PO ×2 (11:08→14:21)
[2020-04-24] MEDS: Donepezil HCl 10 MG TABLET PO (11:08)
[2020-04-24] MEDS: Carbidopa/Levodopa 25/100 TABLET 1 TAB PO ×2 (11:09→14:21)
--- NOTE | 2020-04-24 13:04 | HO.POSTANES ---
Post Anesthesia Evaluation Post Anesthesia Evaluation Vital Signs: Vital Signs Temp Pulse Resp BP Pulse Ox 04/24/20 12:14 97.8 F 91 20 126/81 98 04/24/20 08:00 98.8 F 90 20 140/83 H 97 04/24/20 07:23 97 F 99 20 145/91 H 96 04/24/20 03:53 97.6 F 91 16 144/85 H 94 04/24/20 03:50 97.5 F 91 16 144/85 H 94 Anesthesia: Monitored Mental Status: Awake Pain Control: Satisfactory Nausea/Vomiting: None Hydration: Adequate Anesthesia-Related Issues: No Anes. Related Issues
--- NOTE | 2020-04-24 14:15 | MHC.CM.PN ---
SECONDARY TO CONVERSATION WITH PATIENT, HCP/DAUGHTER (IN ROOM) [facility] AND HOSPITALIST, REFERRALS SENT TO [facility] CONTRACTED FACILITIES. DAUGHTER IS AWARE THAT PATIENT IS READY FOR DISCHARGE, AND IMM 04/24 DELIVERED. COPY IN CHART DAUGHTER IS MADE AWARE THAT THE PROCESS FOR A BED OFFER AT [facility] IS A PROCESS OF ASSESSMENT, APPLICATION, AND REVIEW. CM DIRECTOR PLACED A CALL TO THE [facility] AND LEFT MESSAGE WITH ADMISSIONS TO INQUIRE OF APPROPRIATENESS FOR ADMISSION. DAUGHTER AND PATIENT AWARE AND CAN FOLLOW UP WITH THE FACILITY POST HOSPITAL DISCHARGE.
[2020-04-24] MEDS: oxyCODONE HCl Immed Release 5 MG TABLET PO (14:20)
--- NOTE | 2020-04-24 14:34 | MHC.CLN ---
F/U PO REMAINS 0-25% DIET RX: GRD/ M/S WITH HT LIQ-APPROPRIATE ENSURE AND ABDON IN PLACE TO PROMOTE WOUND HEALING MAYANK STARTED PER MD FOLLOWING
--- NOTE | 2020-04-24 14:36 | MHC.CM.PN ---
DAUGHTER THOMPSON (IN ROOM) MADE AWARE THAT PATIENT CAN FOLLOW UP WITH ONCOLOGY ONCE DISCHARGED FROM ACUTE CARE SETTING. SHE VERBALIZES COMPREHENSION AND AGREEMENT.
[2020-04-24] MEDS: Lactated Ringers 1,000 ML 50 ML IVCONT (14:53)
--- NOTE | 2020-04-24 16:38 | HO.PM.IMPN ---
Subjective Subjective Date of Service: 04/24/20 Interval History: Seen in f/u liver mets and generalized weakness, adult failure to thrive Review of Systems Gen: no fever Resp: no SOB Neuro: Seems confused Physical Exam Vital Signs and I&O and Narrative: Vital Signs and I&O: Vital Signs Temp 97.7 F 04/24/20 15:39 Pulse 89 04/24/20 15:39 Resp 20 04/24/20 15:39 BP 119/71 04/24/20 15:39 Pulse Ox 96 04/24/20 15:39 Const: General: cooperative, healthy appearing and no acute distress Eyes: Pupils: Equal, round and reactive pupils present Neck: Neck: Yes supple Chest: Chest palpation & inspection: normal inspection of the chest Resp: Effort & Inspection: normal respiratory effort and able to speak in complete sentences Auscultation: clear to auscultation bilaterally Cardio: Jugular venous distension: no JVD Rhythm: regular rhythm Heart sounds: S1 normal heart sound present and S2 normal heart sound present GI: Inspection: Yes normal to inspection Palpation (GI): Soft to palpation Auscultation: normal bowel sounds Skin: General skin exam: no rashes or lesions noted Neuro: Cranial nerves: Yes Equal, round and reactive pupils present Motor exam (neuro): Other motor observations present ( no motor deficit) Objective Data Current Medications Generic Name Dose Route Start Last Admin Trade Name Freq PRN Reason Stop Dose Admin Albuterol Sulfate 2.5 mg 04/23/20 00:01 Albuterol Sulfate (0.083%) 2.5 Mg/3 Ml Vial.Neb INHALE Q4H PRN Shortness of Breath Carbidopa/Levodopa 1 tab 04/23/20 09:00 04/24/20 14:21 Carbidopa/Levodopa 25/100 Tablet PO 1 tab TID DION Administration Donepezil HCl 10 mg 04/23/20 09:00 04/24/20 11:08 Donepezil Hcl 10 Mg Tablet PO 10 mg DAILY DION Administration Gabapentin 400 mg 04/23/20 09:00 04/24/20 14:21 Gabapentin 400 Mg Capsule PO 400 mg TID DION Administration Lactated Ringer's 1,000 mls @ 50 mls/hr 04/23/20 15:00 04/24/20 14:53 Lr IVCONT 50 mls/hr .Q20H DION Administration Megestrol Acetate 400 mg 10/01/20 09:00 04/24/20 11:08 Megestrol Acetate 400 Mg/10 Ml Oral.Susp PO 400 mg BID DION Administration Morphine Sulfate 2 mg 04/23/20 13:33 04/23/20 13:42 Morphine Sulfate 2 Mg/Ml Cartridge IVPUSH 2 mg Q4H PRN Administration Pain, Severe (Pain Scale 7-10) Omeprazole 20 mg 04/23/20 16:50 04/24/20 06:49 Omeprazole 20 Mg Capsule. PO 20 mg BID@0630,1630 DION Administration Oxycodone HCl 5 mg 04/23/20 00:01 04/24/20 14:20 Oxycodone Hcl Immed Release 5 Mg Tablet PO 5 mg Q6H PRN Administration Pain, Severe (Pain Scale 7-10) Sodium Chloride 2 ml 04/23/20 09:00 04/24/20 16:14 0.9 % Sodium Chloride Flush 3 Ml Syringe IVFLUSH Not Given QSHIFT [facility] Tamsulosin HCl 0.4 mg 04/23/20 17:00 04/23/20 20:12 Tamsulosin Hcl 0.4 Mg Capsule PO 0.4 mg DAILY@1700 DION Administration Labs CBC & Chem 7: 04/24/20 05:53 04/24/20 05:53 Assessment and Plan (1) Liver mass: Status: Acute Assessment and Plan: 80 yo M who has been admitted several times over the last month or so to [facility] [place] issues. He was initially admitted on 04/01/2020 after a fall and slurred speech. During that admisison he was worked up for his neurological findings and was initiated on Sinemet as his symptoms were felt to be Parkinsonism. He was discharged on 04/03/2020 only to return in less than 12 hours from SNF for respiratory symptoms and fever. During that admission he was treated for aspiration pneumonia. He also had abnormal LFTs during that admission and underwent work up with an ultrasound which showed no cholelithiasis but concern over acalculous cholecystitis was raised and he subsequently was evaluated by General surgery and felt that he unlikely had acalculous cholecystitis. His LFTs were downtrending and were attributed to his acute infection. He now presents with generalized weakness and increase leukocytosis. His work up in the ED which included an LP (not suggestive of bacterial meningitis ) and CT abd/pelvis with contrast which showed a liver mass vs abscess of 4.5 cm. He was admitted for further work up. 1. 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 CT chest shows no evidence of mets. Undergoing EGD 04/23 and showed gastritis. To follow up with Dr. Dean for further management if family wants to proceed with further testing . I had a lenghty face to face conversation with daughter and went over next step which will be discharge and follow up with Dr. Dean. She was agreable with the plan 2. Abnormal LFTs likely from neoplasic process--LFTS are generally low, other high ALKP 3. Anemia-- transfuse 2 units prbcs check h/h probably chronic blood loss, transfuse if Hct <7 4. HyperK resolved monitor 5. History of recently diagnosed Parkinsons continue Sinemet 6. Dementia Aricept 7. Leukocytosis--likely reactive 8. Mild Protein calory malnutrition/anorexia supplements 9. Stage 2 pressure ulcer--frequent turning and other management per protocol
[2020-04-24] MEDS: Tamsulosin HCL 0.4 MG CAPSULE PO (18:08)
[2020-04-24] MEDS: Acetaminophen 325 MG TABLET 650 MG PO (22:27)
[2020-04-25] VITALS (8 sets, daily range): BP systolic 94–139; BP diastolic 56–73; PULSE 72–104; RESP 16–24; TEMP 36–37; O2SAT 90–99
[2020-04-25] MEDS: Omeprazole 20 MG CAPSULE.DR PO ×2 (06:03→16:01)
[2020-04-25] MEDS: Lactated Ringers 1,000 ML 50 ML IVCONT (09:06)
[2020-04-25] MEDS: Carbidopa/Levodopa 25/100 TABLET 1 TAB PO ×3 (09:07→20:54)
[2020-04-25] MEDS: Gabapentin 400 MG CAPSULE PO ×3 (09:07→20:54)
[2020-04-25] MEDS: Megestrol Acetate 400 MG/10 ML ORAL.SUSP PO ×2 (09:07→20:54)
[2020-04-25] MEDS: Donepezil HCl 10 MG TABLET PO (09:07)
[2020-04-25 10:06] LABS: Hematocrit 28.1 % (42-52); Hemoglobin 8.9 g/dl (14.0-18.0); Mean Corpuscular HGB Conc 31.7 g/dl (31.0-36.0); Mean Corpuscular Volume 85.2 fL (80-98); Mean Platelet Volume 11.1 fL (9.4-12.4); NRBC Pct Auto 0.4 /100WBC (0.0-0.2); Platelet Count 231 X10*3/uL (160-400); Red Cell Distribution Width 16.8 % (11.0-16.0); White Blood Count 16.1 X10*3/uL (4.8-10.8)
[2020-04-25] MEDS: Tamsulosin HCL 0.4 MG CAPSULE PO (16:01)
--- NOTE | 2020-04-25 17:46 | P.PNIM_ITS ---
Subjective Subjective Interval History: Seen in f/u liver mets and generalized weakness, adult failure to thrive patient very weak unable to communicate, offers no complaints. Difficult to obtain review of system due to lethargy Physical Exam Vital Signs and I&O and Narrative: Vital Signs and I&O: Vital Signs Temp 97.2 F 04/25/20 16:00 Pulse 84 04/25/20 16:00 Resp 20 04/25/20 12:00 BP 100/61 04/25/20 16:00 Pulse Ox 95 04/25/20 16:00 Intake & Output 04/24/20 04/25/20 04/25/20 18:59 06:59 18:59 Intake Total 930.833 / 1240.833 310 / 1240.833 910.833 / 910.833 Output Total Balance 930.833 / 1239.833 309 / 1239.833 910.833 / 910.833 Urine Output (Aver age ml/kg/hr) 0.00 0.00 Intake: Intake, Oral [place] unt 310 / 310 Intake, IV Amoun t 930.833 / 930.833 910.833 / 910.833 Lactated Ringe rs 1,000 ml @ 50 930.833 / 930.833 910.833 / 910.833 mls/hr IVCONT .Q20H [facility] Rx#: [id number] Output: Output, Urine Am ount Other: Meal Refused No Yes NPO No Breakfast % Eate n 25% 25% Lunch % Eaten 0% Dinner % Eaten 25% Evening Snack % Eaten 25 Number of Incont inent Voids 2 Number of Unmeas ured Voids 2 Body Mass Index 23.7 Const: General: no acute distress and ill appearing Eyes: Pupils: Equal, round and reactive pupils present Neck: Neck: Yes supple Chest: Chest palpation & inspection: normal inspection of the chest Resp: Effort & Inspection: normal respiratory effort and able to speak in complete sentences Auscultation: clear to auscultation bilaterally Cardio: Jugular venous distension: no JVD Rhythm: regular rhythm Heart sounds: S1 normal heart sound present and S2 normal heart sound present GI: Inspection: Yes normal to inspection Palpation (GI): Soft to palpation Auscultation: normal bowel sounds Skin: General skin exam: no rashes or lesions noted Neuro: Cranial nerves: Yes Equal, round and reactive pupils present Motor exam (neuro): Other motor observations present ( no motor deficit) Objective Data Current Medications Generic Name Dose Route Start Last Admin Trade Name Freq PRN Reason Stop Dose Admin Acetaminophen 650 mg 04/24/20 21:39 04/24/20 22:27 Acetaminophen 325 Mg Tablet PO 650 mg Q6H PRN Administration Pain, Mild (Pain Scale 1-3) Albuterol Sulfate 2.5 mg 04/23/20 00:01 Albuterol Sulfate (0.083%) 2.5 Mg/3 Ml Vial.Neb INHALE Q4H PRN Shortness of Breath Carbidopa/Levodopa 1 tab 04/23/20 09:00 04/25/20 16:01 Carbidopa/Levodopa 25/100 Tablet PO 1 tab TID DION Administration Donepezil HCl 10 mg 04/23/20 09:00 04/25/20 09:07 Donepezil Hcl 10 Mg Tablet PO 10 mg DAILY DION Administration Gabapentin 400 mg 04/23/20 09:00 04/25/20 16:01 Gabapentin 400 Mg Capsule PO 400 mg TID DION Administration Lactated Ringer's 1,000 mls @ 50 mls/hr 04/23/20 15:00 04/25/20 09:06 Lr IVCONT 50 mls/hr .Q20H DION Administration Megestrol Acetate 400 mg 04/23/20 09:00 04/25/20 09:07 Megestrol Acetate 400 Mg/10 Ml Oral.Susp PO 400 mg BID DION Administration Morphine Sulfate 2 mg 04/23/20 13:33 04/23/20 13:42 Morphine Sulfate 2 Mg/Ml Cartridge IVPUSH 2 mg Q4H PRN Administration Pain, Severe (Pain Scale 7-10) Omeprazole 20 mg 04/23/20 16:50 04/25/20 16:01 Omeprazole 20 Mg Capsule.Dr PO 20 mg BID@0630,1630 DION Administration Oxycodone HCl 5 mg 04/23/20 00:01 04/24/20 14:20 Oxycodone Hcl Immed Release 5 Mg Tablet PO 5 mg Q6H PRN Administration Pain, Severe (Pain Scale 7-10) Sodium Chloride 2 ml 04/23/20 09:00 04/25/20 16:01 0.9 % Sodium Chloride Flush 3 Ml Syringe IVFLUSH Not Given QSHIFT [facility] Tamsulosin HCl 0.4 mg 04/23/20 17:00 04/25/20 16:01 Tamsulosin Hcl 0.4 Mg Capsule PO 0.4 mg DAILY@1700 [facility] Administration Labs CBC & Chem 7: 04/25/20 09:31 04/24/20 05:53 Labs: Laboratory Results - last 24 hr 04/25/20 09:31 MCV 85.2 MCH 27.0 MCHC 31.7 RDW 16.8 H Plt Count 231 MPV 11.1 Absolute Nucleated RBC 0.070 H Nucleated RBC % (auto) 0.4 H Assessment and Plan (1) Liver mass: Status: Acute Assessment and Plan: 80 yo M who has been admitted several times over the last month or to [facility] [place]. He was initially admitted on 04/01/2020 after a fall and slurred speech. During that admisison he was worked up for his neurological findings and was initiated on Sinemet as his symptoms were felt to be Parkinsonism. He was discharged on 04/03/2020 only to return in less than 12 hours from SNF for respiratory symptoms and fever. During that admission he was treated for aspiration pneumonia. He also had abnormal LFTs during that admission and underwent work up with an ultrasound which showed no cholelithiasis but concern over acalculous cholecystitis was raised and he subsequently was evaluated by General surgery and felt that he unlikely had acalculous cholecystitis. His LFTs were downtrending and were attributed to his acute infection. He now presents with generalized weakness and increase leukocytosis. His work up in the ED included an LP (not suggestive of bacterial meningitis ) and CT abd/pelvis with contrast which showed a liver mass vs abscess of 4.5 cm. He was admitted for further work up. 1. 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 CT chest shows no evidence of mets. Underwent EGD 04/23 and showed gastritis. To follow up with Dr. Dean for further management if family wants to proceed with further testing . Dr. Rodriguez had a lenghty face to face conversation with daughter and went over next step which will be discharge and follow up with Dr. Dean. She was agreeable with the plan 2. Abnormal LFTs likely from neoplasic process--LFTS are generally low, other high ALKP 3. Anemia-- status post 2 units prbcs hematocrit stable probably chronic blood loss, transfuse if Hct <7 4. HyperK resolved 5. History of recently diagnosed Parkinsons continue Sinemet 6. Dementia Aricept 7. Leukocytosis--likely reactive or related to liver process 8. Mild Protein calory malnutrition/anorexia encouraged supplement and continue IV fluid due to poor by mouth intake 9. Stage 2 pressure ulcer--frequent turning and other management per protocol
--- NOTE | 2020-04-25 19:15 | ECG_ITS ---
Test Reason : CHEST PX Blood Pressure : / mmHG Vent. Rate : 096 BPM Atrial Rate : 096 BPM P-R Int : 130 ms QRS Dur : 074 ms QT Int : 418 ms P-R-T Axes : 061 -40 244 degrees QTc Int : 528 ms Normal sinus rhythm Left axis deviation Low voltage QRS Possible Lateral infarct (cited on or before 28-MAR-2020) Inferior infarct , age undetermined ST & T wave abnormality, consider anterior ischemia Prolonged QT Abnormal ECG When compared with ECG of 16-APR-2020 18:20, Premature atrial complexes are no longer Present T wave inversion now evident in Inferior leads T wave inversion now evident in Anterolateral leads Referred By: Joey Jiang Electronically Signed By:LEXX SEPULVEDA
[2020-04-25] MEDS: Furosemide 20 MG/2 ML VIAL IVPUSH (20:03)
--- NOTE | 2020-04-25 20:54 | PM.EVENT ---
Event Note Event Note: DELIVERY NURSE called at approximately 8 pm due to chest pain. Patient seen and evaluated at the bedside. Reports that has a pain in the retrosternal area but is unable to communicate details. EKG done which shows T wave inversion in infero-lateral leads. STAT EKG to be obtained now. Daughter called at the listed number: [phone] (Radha) but unable to reach at present. To be transferred to [facility] at present, one dose of nitroglycerin to be given now and occult blood. Cardiology to be consulted in regards to anticoagulation at present.
[2020-04-25] MEDS: 0.9 % Sodium Chloride Flush 3 ML SYRINGE 2 ML IVFLUSH (20:55)
[2020-04-25 21:53] LABS: Troponin-I High Sensitivity 330.3 ng/L (<3.5-35.0)
[2020-04-26] VITALS (7 sets, daily range): BP systolic 78–131; BP diastolic 48–66; PULSE 82–102; RESP 14–90; TEMP 36.3–36.9; O2SAT 90–96
[2020-04-26] MEDS: Aspirin 81 MG TAB.CHEW PO (00:17)
--- NOTE | 2020-04-26 01:23 | PC.NURSE ---
PT TRANSFERRED FROM S/T ACUTE ONSET OF CHEST PAIN AND EKG CHANGES. PT ALSO HAD ELEVATED TROPONIN AFTER EVENT. BP LOW UPON ARRIVAL 88/52. MD NOTIFIED. PTS BP TRENDS LOW. NO INTERVENTIONS AT THIS TIME. PT ID SLERT BUT LETHARGIC. HE DENIES ANY CP, PALPS, SOB, NAUSEA, DIZZINESS, ETC AT THIS TIME. NEXT TROPONIN DUE AT 0300. PT IS ON 5L NC WITH A SAT IN THE LOW 90S. FINE CRACKLES NOTED AT L BASE. PT ALSO HAS PEDAL/ANKLE EDEMA L>R AND BILATERAL HAND EDEMA. IVF DC'D. PT GIVEN LOW DOSE ASPIRIN S/T CARDIAC EVENT. SR ON THE MONITOR WITH PVCS/PACS, RATE 80S-90S. SEQUENTIALS ON. AIR LOSS DEVICE IN PLACE FOR STAGE 2 PRESSURE ULCERS. [place] CATH APPLIED AND IS DRAINING CLEAR YELLOW URINE. CALL JONES IN REACH. BED ALARM ON. WILL CONTINUE TO MONITOR.
[2020-04-26] MEDS: Omeprazole 20 MG CAPSULE.DR PO (05:50)
[2020-04-26] MEDS: Donepezil HCl 10 MG TABLET PO (08:31)
[2020-04-26] MEDS: Gabapentin 400 MG CAPSULE PO (08:31)
[2020-04-26] MEDS: Megestrol Acetate 400 MG/10 ML ORAL.SUSP PO (08:31)
[2020-04-26] MEDS: Carbidopa/Levodopa 25/100 TABLET 1 TAB PO (08:31)
[2020-04-26] MEDS: 0.9 % Sodium Chloride Flush 3 ML SYRINGE 2 ML IVFLUSH ×3 (08:31→22:09)
[2020-04-26] MEDS: Morphine Sulfate 2 MG/ML CARTRIDGE IVPUSH ×2 (10:45→16:13)
--- NOTE | 2020-04-26 16:18 | P.PNIM_ITS ---
Subjective Subjective Interval History: Seen in f/u liver mets and generalized weakness, adult failure to thrive patient Last night complained of chest pain, EKG showed inferior lateral T- wave changes, troponin elevated 330 patient treated with aspirin and transferred to telemetry unit this a.m. patient very lethargic not communicating incontinent of both bowel and bladder. Review of systems Difficult to obtain due to lethargy Physical Exam Vital Signs and I&O and Narrative: Vital Signs and I&O: Vital Signs Temp 98.1 F 04/26/20 12:00 Pulse 102 H 04/26/20 12:00 Resp 16 04/26/20 12:00 BP 121/64 04/26/20 12:00 Pulse Ox 93 04/26/20 12:00 Intake & Output 04/25/20 04/26/20 04/26/20 18:59 06:59 18:59 Intake Total 910.833 / 778.791 4803 / 1000 Output Total 400 / 400 1 / 1 Balance 910.833 / 510.833 -400 / 510.833 999 / 999 Urine Output (Aver age ml/kg/hr) 0.50 0.00 Intake: Intake, Oral [place] unt 0 / 0 Intake, IV Amoun t 910.833 / 186.917 8988 / 1000 Lactated Ringe rs 1,000 ml @ 50 910.833 / 519.493 7634 / 1000 mls/hr IVCONT .Q20H [facility] Rx#: [id number] Output: Output, Urine Am ount 200 / 200 0 / 0 Output, Stool Am ount 1 / 1 Output, Urine Am ount (Catheter) 200 / 200 Condom 200 / 200 Other: Meal Refused Yes Breakfast % Eate n 0% Lunch % Eaten 0% Number of Incont inent Voids 1 Number of Incont inent Bowel 1 1 Movements Urine [place] Cath Urine Color Yellow Stool Color Fontanez Yellow Stool Consistenc y Pasty Loose Body Mass Index 23.7 Const: General: no acute distress and ill appearing Eyes: Pupils: Equal, round and reactive pupils present Neck: Neck: Yes supple Chest: Chest palpation & inspection: normal inspection of the chest Resp: Effort & Inspection: normal respiratory effort Auscultation: clear to auscultation bilaterally Cardio: Jugular venous distension: no JVD Rhythm: regular rhythm Heart sounds: S1 normal heart sound present and S2 normal heart sound present GI: Inspection: Yes normal to inspection Palpation (GI): Soft to palpation Auscultation: normal bowel sounds Skin: General skin exam: no rashes or lesions noted Neuro: Cranial nerves: Yes Equal, round and reactive pupils present Motor exam (neuro): Other motor observations present ( no motor deficit) Extrem: General: Yes edema Right lower extremity: edema Left lower extremity: edema Objective Data Current Medications Generic Name Dose Route Start Last Admin Trade Name Freq PRN Reason Stop Dose Admin Acetaminophen 650 mg 04/24/20 21:39 04/24/20 22:27 Acetaminophen 325 Mg Tablet PO 650 mg Q6H PRN Administration Pain, Mild (Pain Scale 1-3) Albuterol Sulfate 2.5 mg 04/23/20 00:01 Albuterol Sulfate (0.083%) 2.5 Mg/3 Ml Vial.Neb INHALE Q4H PRN Shortness of Breath Carbidopa/Levodopa 1 tab 04/23/20 09:00 04/26/20 16:09 Carbidopa/Levodopa 25/100 Tablet PO Not Given TID DION Donepezil HCl 10 mg 04/23/20 09:00 04/26/20 08:31 Donepezil Hcl 10 Mg Tablet PO 10 mg DAILY DION Administration Gabapentin 400 mg 04/23/20 09:00 04/26/20 16:09 Gabapentin 400 Mg Capsule PO Not Given TID DION Megestrol Acetate 400 mg 04/23/20 09:00 04/26/20 08:31 Megestrol Acetate 400 Mg/10 Ml Oral.Susp PO 400 mg BID DION Administration Morphine Sulfate 2 mg 04/23/20 13:33 04/26/20 16:13 Morphine Sulfate 2 Mg/Ml Cartridge IVPUSH 2 mg Q4H PRN Administration Pain, Severe (Pain Scale 7-10) Omeprazole 20 mg 04/23/20 16:50 04/26/20 16:09 Omeprazole 20 Mg Capsule.Dr PO Not Given BID@0630,1630 DION Oxycodone HCl 5 mg 04/23/20 00:01 04/24/20 14:20 Oxycodone Hcl Immed Release 5 Mg Tablet PO 5 mg Q6H PRN Administration Pain, Severe (Pain Scale 7-10) Sodium Chloride 2 ml 04/23/20 09:00 10/04/20 16:09 0.9 % Sodium Chloride Flush 3 Ml Syringe IVFLUSH 2 ml QSHIFT [facility] Administration Tamsulosin HCl 0.4 mg 04/23/20 17:00 04/26/20 16:10 Tamsulosin Hcl 0.4 Mg Capsule PO Not Given DAILY@1700 [facility] Labs CBC & Chem 7: 04/25/20 09:31 04/24/20 05:53 Labs: Laboratory Results - last 24 hr 04/25/20 04/26/20 20:58 03:00 Troponin I High Sens 330.3 H 321.0 H Assessment and Plan (1) Liver mass: Status: Acute Assessment and Plan: 80 yo M who has been admitted several times over the last month or to [facility] [place]. He was initially admitted on 04/01/2020 after a fall and slurred speech. During that admisison he was worked up for his neurological findings and was initiated on Sinemet as his symptoms were felt to be Parkinsonism. He was discharged on 04/03/2020 only to return in less than 12 hours from SNF for respiratory symptoms and fever. During that admission he was treated for aspiration pneumonia. He also had abnormal LFTs during that admission and underwent work up with an ultrasound which showed no cholelithiasis but concern over acalculous cholecystitis was raised and he subsequently was evaluated by General surgery and felt that he unlikely had acalculous cholecystitis. His LFTs were downtrending and were attributed to his acute infection. He now presents with generalized weakness and increase leukocytosis. His work up in the ED included an LP (not suggestive of bacterial meningitis ) and CT abd/pelvis with contrast which showed a liver mass vs abscess of 4.5 cm. He was admitted for further work up. chest pain with elevated troponin and EKG changes since patient has poor pr ognosis due to recently diagnosed adeno carcinoma, Parkinson's disease and now anemia case discussed with patient's daughter Radha Maloney and Rosie informed them about patient's poor prognosis and guarded condition they both agreed for hospice / comfort care, will discontinue IV fluid to avoid fluid retention and worsening edema will continue current medications and diet as tolerated, case discussed with Dr. Dean she agreed for care more towards comfort. case discussed with long term care social worker day will look in to safe disposition. 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 CT chest shows no evidence of mets. Underwent EGD 04/23 and showed gastritis. spokeTo follow up with Dr. Dean Due to patient's overall poor condition she does not feel patient is a candidate for immunotherapy and recommend care more towards comfort Anemia-- status post 2 units prbcs hematocrit stable,probably chronic blood loss, and due to cancer. HyperK resolved History of recently diagnosed Parkinsons continue Sinemet if tolerate by mouth Dementia Aricept If can tolerate by mouth Leukocytosis--likely reactive or related to liver process Mild Protein calorie malnutrition/anorexia feed as tolerated Stage 2 pressure ulcer--frequent turning and other management per protocol
--- NOTE | 2020-04-26 18:18 | P.ACPN_ITS ---
Advanced Care Planning Note Advanced Care Planning Note Time spent (in minutes): 16 Narrative: 80-year-old gentleman with past medical history significant for multiple hospitalization to [facility] in last 1 month recently admitted due to generalized weakness and leukocytosis his workup included lumbar puncture that showed no evidence of acute meningitis CT abdomen and pelvis showed liver mass the biopsy of liver mass showed the patient has adeno carcinoma with multiple other liver lesions patient has been doing poorly with poor by mouth intake generalized edema and developed chest pain since patient is not a candidate for aggressive treatment with advance cancer not a candidate for immunotherapy case discussed with patient's daughter healthcare proxy Radha Maloney and patient's Rosie and it was decided to treat patient with goal more towards comfort, therefore will place patient on morphine discontinue IV fluids continue feedings as tolerated. Problems Discussed (1) Liver mass:
[2020-04-27] VITALS (8 sets, daily range): BP systolic 102; BP diastolic 60; PULSE 112–128; RESP 18–34; TEMP 36.8; O2SAT 92; BMI 23.7
[2020-04-27] MEDS: Morphine Sulfate 2 MG/ML CARTRIDGE IVPUSH ×5 (07:37→23:27)
[2020-04-27] MEDS: 0.9 % Sodium Chloride Flush 3 ML SYRINGE 2 ML IVFLUSH ×2 (07:37→19:11)
--- NOTE | 2020-04-27 11:08 | P.PNIM_ITS ---
Subjective Subjective Interval History: Seen in f/u liver mets and generalized weakness, adult failure to thrive patient this a.m. lying in bed, eyes open not verbalizing, poor urinary output, noted to have pooling of secretions back of throat. review of system not obtainable due to significant weakness and lethargy Physical Exam Vital Signs and I&O and Narrative: Vital Signs and I&O: Vital Signs Temp 98.1 F 04/26/20 12:00 Pulse 102 H 04/26/20 12:00 Resp 18 04/27/20 11:05 BP 121/64 04/26/20 12:00 Pulse Ox 93 04/26/20 12:00 Intake & Output 04/26/20 04/27/20 04/27/20 18:59 06:59 18:59 Intake Total 1000 / 1000 0 / 1000 Output Total 1 / 1 Balance 999 / 999 0 / 999 Urine Output (Aver age ml/kg/hr) 0.00 0.00 0.00 Weight 66.7 kg Intake: Intake, Oral Kamryn unt 0 / 0 0 / 0 Intake, IV Amoun t 1000 / 1000 Lactated Ringe rs 1,000 ml @ 50 1000 / 1000 mls/hr IVCONT .Q20H [facility] Rx#: [id number] Output: Output, Urine Am ount 0 / 0 Output, Stool Am ount 1 / 1 Other: NPO Yes Breakfast % Eate n 0% 0% Lunch % Eaten 0% Number of Incont inent Voids 2 Number of Unmeas ured Voids 1 Number of Incont inent Bowel 1 Movements Stool Color Yellow Stool Consistenc y Loose Continuous Bladd er Irrigation Fluid - Amount I nstilled Condom 200 Body Mass Index 23.7 Const: General: no acute distress and ill appearing Neck: Neck: Yes supple Chest: Chest palpation & inspection: normal inspection of the chest Resp: Effort & Inspection: normal respiratory effort Cardio: Jugular venous distension: no JVD Rhythm: regular rhythm Heart sounds: S1 normal heart sound present and S2 normal heart sound present GI: Inspection: Yes normal to inspection Palpation (GI): Soft to palpation Auscultation: normal bowel sounds Skin: General skin exam: no rashes or lesions noted Extrem: General: Yes edema Right lower extremity: edema Left lower extremity: edema Objective Data Current Medications Generic Name Dose Route Start Last Admin Trade Name Freq PRN Reason Stop Dose Admin Acetaminophen 650 mg 04/24/20 21:39 04/24/20 22:27 Acetaminophen 325 Mg Tablet PO 650 mg Q6H PRN Administration Pain, Mild (Pain Scale 1-3) Albuterol Sulfate 2.5 mg 04/23/20 00:01 Albuterol Sulfate (0.083%) 2.5 Mg/3 Ml Vial.Neb INHALE Q4H PRN Shortness of Breath Carbidopa/Levodopa 1 tab 04/23/20 09:00 04/26/20 22:08 Carbidopa/Levodopa 25/100 Tablet PO Not Given TID [facility] Donepezil HCl 10 mg 04/23/20 09:00 04/26/20 08:31 Donepezil Hcl 10 Mg Tablet PO 10 mg DAILY DION Administration Gabapentin 400 mg 04/23/20 09:00 04/26/20 22:09 Gabapentin 400 Mg Capsule PO Not Given TID DION Morphine Sulfate 2 mg 04/26/20 16:45 04/27/20 11:05 Morphine Sulfate 2 Mg/Ml Cartridge IVPUSH 2 mg Q2H PRN Administration Pain, Severe (Pain Scale 7-10) Omeprazole 20 mg 04/23/20 16:50 04/27/20 06:19 Omeprazole 20 Mg Capsule.Dr PO Not Given BID@0630,1630 [facility] Scopolamine 1.5 mg 04/27/20 11:15 Scopolamine 1.5 Mg Patch.Td.3 TRANSDERMA Q72H [facility] Sodium Chloride 2 ml 04/23/20 09:00 04/27/20 07:37 0.9 % Sodium Chloride Flush 3 Ml Syringe IVFLUSH 2 ml QSHIFT [facility] Administration Tamsulosin HCl 0.4 mg 04/23/20 17:00 04/26/20 16:10 Tamsulosin Hcl 0.4 Mg Capsule PO Not Given DAILY@1700 [facility] Labs CBC & Chem 7: 04/25/20 09:31 04/24/20 05:53 Assessment and Plan (1) Liver mass: Status: Acute Assessment and Plan: 80 yo M who has been admitted several times over the last month or to [facility] for multiple issues. He was initially admitted on 04/01/2020 after a fall and slurred speech. During that admisison he was worked up for his neurological findings and was initiated on Sinemet as his symptoms were felt to be Parkinsonism. He was discharged on 04/03/2020 only to return in less than 12 hours from SNF for respiratory symptoms and fever. During that admission he was treated for aspiration pneumonia. He also had abnormal LFTs during that admission and underwent work up with an ultrasound which showed no cholelithiasis but concern over acalculous cholecystitis was raised and he subsequently was evaluated by General surgery and felt that he unlikely had acalculous cholecystitis. His LFTs were downtrending and were attributed to his acute infection. He now presents with generalized weakness and increase leukocytosis. His work up in the ED included an LP (not suggestive of bacterial meningitis ) and CT abd/pelvis with contrast which showed a liver mass vs abscess of 4.5 cm. He was admitted for further work up. 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 CT chest shows no evidence of mets. Underwent EGD 04/23 and showed gastritis. Due to patient's overall poor condition, oncologist Dr. Dean does not feel patient is a candidate for immunotherapy and recommend care more towards comfort case discussed with patient's daughter Radha and Rosie and they both agreed for goal of care towards comfort therefore patient placed on diet for comfort, morphine, scopolamine patch due to excessive secretions noted today. Chest pain with elevated troponin and EKG changes since patient has poor prognosis due to recently diagnosed adeno carcinoma, Parkinson's disease and now anemia no further treatment plan. Anemia-- status post 2 units prbcs hematocrit stable,probably chronic blood loss, and due to cancer , no further lab draws. HyperK resolved History of recently diagnosed Parkinsons will discontinue Sinemet unable to tolerate. Dementia unable to tolerate by mouth medications will DC Aricept. Leukocytosis--likely reactive or related to liver process Mild Protein calorie malnutrition/anorexia comfort feeds ordered Stage 2 pressure ulcer--frequent turning and other management per protocol
[2020-04-27] MEDS: Scopolamine 1.5 MG PATCH.TD.3 TRANSDERMA (11:12)
--- NOTE | 2020-04-27 12:50 | MHC.CM.PN ---
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
[2020-04-28] VITALS (8 sets, daily range): RESP 24–40
[2020-04-28] MEDS: 0.9 % Sodium Chloride Flush 3 ML SYRINGE 2 ML IVFLUSH ×4 (03:25→23:42)
[2020-04-28] MEDS: Morphine Sulfate 2 MG/ML CARTRIDGE IVPUSH ×5 (03:25→13:45)
--- NOTE | 2020-04-28 10:52 | PC.NURSE ---
[facility] contacted at 1051, spoke with Davy to open a case file. Case #[id number]. Case denied for organ and tissue recovery. Please call NEOB with [facility] to close case file. Thank you.
--- NOTE | 2020-04-28 16:04 | HO.PM.IMPN ---
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 daughter at bedside, no significant secretions or respiratory distress. Review of Systems Unobtainable patient not responsive Physical Exam Vital Signs and I&O and Narrative: Vital Signs and I&O: Vital Signs Temp 98.2 F 04/27/20 12:00 Pulse 112 H 04/27/20 19:20 Resp 36 H 04/28/20 13:45 BP 102/60 04/27/20 12:00 Pulse Ox 92 04/27/20 19:20 Intake & Output 04/27/20 04/28/20 04/28/20 18:59 06:59 18:59 Intake Total 0 / 0 0 / 0 Balance 0 / 0 0 / 0 Weight 66.7 kg Intake: Intake, Oral Roseau unt 0 / 0 Intake, Other Am ount 0 / 0 Other: NPO Yes Breakfast % Eate n 0% Lunch % Eaten 0% Number of Incont inent Voids 1 1 Body Mass Index 23.7 patient in bed appears tachypneic otherwise no distress no moaning, groaning noted. Neuro: Motor exam (neuro): no other ( no motor deficit) Objective Data Current Medications Generic Name Dose Route Start Last Admin Trade Name Freq PRN Reason Stop Dose Admin Acetaminophen 650 mg 04/24/20 21:39 04/24/20 22:27 Acetaminophen 325 Mg Tablet PO 650 mg Q6H PRN Administration Pain, Mild (Pain Scale 1-3) Albuterol Sulfate 2.5 mg 04/23/20 00:01 Albuterol Sulfate (0.083%) 2.5 Mg/3 Ml Vial.Neb INHALE Q4H PRN Shortness of Breath Donepezil HCl 10 mg 04/23/20 09:00 04/28/20 07:34 Donepezil Hcl 10 Mg Tablet PO Not Given DAILY DION Gabapentin 400 mg 04/23/20 09:00 04/28/20 07:35 Gabapentin 400 Mg Capsule PO Not Given TID DION Morphine Sulfate 2 mg 04/26/20 16:45 04/28/20 13:45 Morphine Sulfate 2 Mg/Ml Cartridge IVPUSH 2 mg Q2H PRN Administration Pain, Severe (Pain Scale 7-10) Scopolamine 1.5 mg 04/27/20 11:15 04/27/20 11:12 Scopolamine 1.5 Mg Patch.Td.3 TRANSDERMA 1.5 mg Q72H DION Administration Sodium Chloride 2 ml 04/23/20 09:00 04/28/20 07:34 0.9 % Sodium Chloride Flush 3 Ml Syringe IVFLUSH 2 ml QSHIFT DION Administration Labs CBC & Chem 7: 04/25/20 09:31 04/24/20 05:53 Assessment and Plan (1) Liver mass: Status: Acute Assessment and Plan: 80 yo M who has been admitted several times over the last month or to [facility] [place] for multiple issues. He was initially admitted on 04/01/2020 after a fall and slurred speech. During that admisison he was worked up for his neurological findings and was initiated on Sinemet as his symptoms were felt to be Parkinsonism. He was discharged on 04/03/2020 only to return in less than 12 hours from SNF for respiratory symptoms and fever. During that admission he was treated for aspiration pneumonia. He also had abnormal LFTs during that admission and underwent work up with an ultrasound which showed no cholelithiasis but concern over acalculous cholecystitis was raised and he subsequently was evaluated by General surgery and felt that he unlikely had acalculous cholecystitis. His LFTs were downtrending and were attributed to his acute infection. He now presents with generalized weakness and increase leukocytosis. His work up in the ED included an LP (not suggestive of bacterial meningitis ) and CT abd/pelvis with contrast which showed a liver mass vs abscess of 4.5 cm. He was admitted for further work up. 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 Due to tachypnea will give additional dose of morphine. Daughter Radha Maloney at bedside.
[2020-04-28] MEDS: Morphine Sulfate 2 MG/ML CARTRIDGE 3 MG IVPUSH ×2 (16:31→20:00)
[2020-04-29 03:59] VITALS: RESP 24
[2020-04-29 05:10] VITALS: RESP 24
[2020-04-29] MEDS: Morphine Sulfate 2 MG/ML CARTRIDGE 3 MG IVPUSH (05:10)
[2020-04-29 07:40] VITALS: PULSE 106; RESP 38
[2020-04-29] MEDS: 0.9 % Sodium Chloride Flush 3 ML SYRINGE 2 ML IVFLUSH ×2 (08:49→14:56)
[2020-04-29] MEDS: Morphine Sulfate 4 MG/ML CARTRIDGE 3 MG IVPUSH ×4 (08:54→18:37)
--- NOTE | 2020-04-29 10:26 | CONS_ITS ---
DATE OF SERVICE: 04/22/2020 REFERRING PHYSICIAN: Zach Rodriguez MD REASON FOR CONSULTATION: Adenocarcinoma of unknown primary. HISTORY OF PRESENT ILLNESS: The patient is an 80-year-old man, who was admitted to the hospital on April 16 with complaints of weakness and poor nutritional intake. He was found to have a high white blood cell count and CT scanning, which showed a liver mass or abscess. He underwent biopsy, which showed adenocarcinoma without definite unknown primary. He has been noted to be anemic and have Hemoccult-positive stools. 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 The patient provides no history. PAST MEDICAL HISTORY: 1. Dementia. 2. Parkinson disease. 3. Anxiety. 4. Gastroesophageal reflux disease. CURRENT MEDICATIONS: His current medication list is reviewed in the chart. ALLERGIES: THERE ARE NONE REPORTED. FAMILY HISTORY: Reviewed in electronic medical record. SOCIAL HISTORY: Reviewed in electronic medical record. REVIEW OF SYSTEMS: Not obtainable. PHYSICAL EXAMINATION: GENERAL: Reveals an elderly male, in no acute distress. VITAL SIGNS: Reviewed in electronic medical record and are stable. SKIN: Anicteric. HEENT: Shows no scleral icterus. NECK: Without lymphadenopathy or thyromegaly. LUNGS: Clear. HEART: Regular rate and rhythm. S1, S2. No murmur. ABDOMEN: Soft without focal masses or tenderness. Bowel sounds are present. No organomegaly is noted. EXTREMITIES: Without edema. LABORATORY DATA: Remarkable for white blood cell count of 18.2, hematocrit 24.3. Chemistries show elevations of his alkaline phosphatase, AST, and normal ALT. IMPRESSION: Adenocarcinoma of unknown primary with findings as above in the setting of anemia and Hemoccult-positive stools. I discussed with the patient and his daughter that endoscopy may be useful to rule out a gastric source for his tumor. This might help him in terms of possible treatments. We discussed endoscopy. The patient's daughter would wish to discuss this with her brother and they understand risks and benefits. We will tentatively plan for this tomorrow if they agree to proceed. At this point given his clinical condition, it seems unlikely, he would be able to tolerate a bowel prep for colonoscopy. Therefore, I would not recommend this at this time. Thanks for asking me to see him. I will follow him in the hospital with you. MD EULOGIO Whittaker/GRIFFIN / [phone]
[2020-04-29] MEDS: LORazepam 2 MG/ML VIAL 0.5 MG IVPUSH ×2 (10:37→15:01)
[2020-04-29 11:32] VITALS: RESP 20
--- NOTE | 2020-04-29 13:03 | MHC.CM.PN ---
per rounds pt is extremely poor
--- NOTE | 2020-04-29 15:38 | P.PNIM_ITS ---
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 daughter at bedside, no acute issues overnight. 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 Physical Exam Vital Signs and I&O and Narrative: Vital Signs and I&O: Vital Signs Temp 98.2 F 04/27/20 12:00 Pulse 106 H 04/29/20 07:40 Resp 20 04/29/20 11:32 BP 102/60 04/27/20 12:00 Pulse Ox 92 04/27/20 19:20 Intake & Output 04/28/20 04/29/20 04/29/20 18:59 06:59 18:59 Output Total 0 / 0 Balance 0 / 0 Urine Output (Aver age ml/kg/hr) 0.00 0.00 Output: Output, Urine Am ount 0 / 0 Other: NPO Yes Number of Incont inent Voids 1 1 Urine Color Dilute Body Mass Index 23.7 patient resting in bed, in no distress neck no JVD lungs no congestion extremities edematous Objective Data Current Medications Generic Name Dose Route Start Last Admin Trade Name Freq PRN Reason Stop Dose Admin Lorazepam 0.5 mg 04/29/20 08:19 04/29/20 15:01 Lorazepam 2 Mg/Ml Vial IVPUSH 0.5 mg Q2H PRN Administration Restlessness Morphine Sulfate 3 mg 04/29/20 11:26 04/29/20 13:28 Morphine Sulfate 4 Mg/Ml Cartridge IVPUSH 3 mg Q2H PRN Administration Shortness of Breath/Wheezing Scopolamine 1.5 mg 04/27/20 11:15 04/27/20 11:12 Scopolamine 1.5 Mg Patch.Td.3 TRANSDERMA 1.5 mg Q72H DION Administration Sodium Chloride 2 ml 04/23/20 09:00 04/29/20 14:56 0.9 % Sodium Chloride Flush 3 Ml Syringe IVFLUSH 2 ml QSHIFT DION Administration Labs CBC & Chem 7: 04/25/20 09:31 04/24/20 05:53 Assessment and Plan (1) Liver mass: Status: Acute (2) Comfort measures only status: Status: Acute (3) Adenocarcinoma of liver: Status: Acute (4) Stage II pressure ulcer: Status: Acute Assessment and Plan: 80 yo M who has been admitted several times over the last month or to [facility] for multiple issues. He was initially admitted on 04/01/2020 after a fall and slurred speech. During that admisison he was worked up for his neurological findings and was initiated on Sinemet as his symptoms were felt to be Parkinsonism. He was discharged on 04/03/2020 only to return in less than 12 hours from SNF for respiratory symptoms and fever. During that admission he was treated for aspiration pneumonia. He also had abnormal LFTs during that admission and underwent work up with an ultrasound which showed no cholelithiasis but concern over acalculous cholecystitis was raised and he subsequently was evaluated by General surgery and felt that he unlikely had acalculous cholecystitis. His LFTs were downtrending and were attributed to his acute infection. He now presents with generalized weakness and increase leukocytosis. His work up in the ED included an LP (not suggestive of bacterial meningitis ) and CT abd/pelvis with contrast which showed a liver mass vs abscess of 4.5 cm. He was admitted for further work up. 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
[2020-04-29 20:00] VITALS: RESP 16
[2020-04-30] VITALS (10 sets, daily range): RESP 14–35
[2020-04-30] MEDS: 0.9 % Sodium Chloride Flush 3 ML SYRINGE 2 ML IVFLUSH ×4 (00:17→23:50)
[2020-04-30] MEDS: Morphine Sulfate 4 MG/ML CARTRIDGE 3 MG IVPUSH ×4 (09:43→23:50)
[2020-04-30] MEDS: Scopolamine 1.5 MG PATCH.TD.3 TRANSDERMA (10:44)
--- NOTE | 2020-04-30 11:30 | P.EN_ITS ---
Event Note Event Note: Daily Progress Note S - not talking O respiratory distress and minimally responsive A/P 80 yo M admitted 04/16/2020 for generalized weakness, fever. Liver mass consistant with adenoCa, primary unknown. 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 Currently in some respiratory distress. Will give additional dose of morphin and change it to q1h continue other DATA PROCESSING OPERATOR measures. Will speak with family when they come in later today
[2020-04-30] MEDS: LORazepam 2 MG/ML VIAL 0.5 MG IVPUSH (18:40)
[2020-05-01] VITALS: RESP 22
--- NOTE | 2020-05-01 03:38 | PM.EVENT ---
Event Note Event Note: Notified by RN around 3:30 am that was not able to obtain any vitals signs on the patient. I evaluated the patient at the bedside, no breathing sounds identified, No pulse, EKG obtained shows asystole. 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 Time of determined as 3:33 am. Family to be notified now.
--- NOTE | 2020-08-21 07:13 | PM.DDS ---
Discharge Sum: Prov Provider Primary care physician: Renee Alegria MD Consults: 04/22/20 02:29 Consult to Hematology / Oncology Routine Consulting Provider: Neena Dean Reason for consultation: Liver Cancer Has provider been notified: Yes 04/22/20 02:36 Consult to Wound Care Provider Routine Consulting Provider: Harshad Ramsay 04/22/20 02:43 Consult to Infectious Diseases Routine Consulting Provider: Lamar Lazar Reason for consultation: liver abscess Has provider been notified: Yes 04/22/20 23:14 Consult to Gastroenterology Routine Consulting Provider: Karan Lorenzo Reason for consultation: Anemia, Occult Blood Positive, Malignance of No Primary, Advise and Treat Has provider been notified: Yes 04/23/20 12:50 Consult to Hematology / Oncology Routine Consulting Provider: Neena Dean Reason for consultation: liver mass Pronouncing clinician: Deedee Vasquez Discharge Sum: Diag Contributing Factors (1) Liver mass: (2) Anemia: (3) Elevated troponin I level: (4) Hyperkalemia: (5) Dementia: (6) Protein calorie malnutrition: (7) Stage II pressure ulcer: Discharge Sum: Summary Date and Time Date of admission: 04/16/20 23:55 Date of : 05/01/20 Time of : 03:33 Summary Details: This is a 80-year-old male who was admitted to the hospital several times over the last few months for multiple issues. Initially he was admitted after a fall and slurred speech on 04/01/2020. During that admission he was seen by Neurology and his symptoms were felt to be related to parkinsonism and so he was initiated on Sinemet. He was discharged on 04/03/2020 only to return less than 12 hours later for respiratory symptoms and pneumonia which was felt to be secondary to aspiration. He was appropriately treated during that admission. That hospitalization was complicated by abnormal right upper quadrant ultrasound which was concerning for acalculous cholecystitis. General surgery saw the patient and based off his clinical features felt that this was unlikely. He was subsequently discharged and readmitted thereafter at which point he underwent a CT scan of the abdomen and pelvis which showed a liver mass of 4.5 cm which was read by the radiologist as mass versus abscess. So, during this particular admission he underwent significant workup with multiple speciality is included including biopsies and endoscopies. Unfortunately, patient's condition continued to decline with worsening anemia, poor oral intake and malnutrition, elevated troponins with EKG changes felt to be likely an MT. given his age and acute and chronic comorbidities the discussion was held with the family and ultimately the patient was changed to comfort measures only status. He peacefully on 05/01/2020 at 0333. Additional Data Attending physician: Kam Rios MD
== END 2020-05-01 03:33 | disposition expired | DRG 435 ==
LOC: HO.S3 04-25 19:42 → HO.IMC 04-25 20:52
PROVIDERS: Hospitalist; Internal Medicine; Admitting Provider Internal Medicine; Emergency Provider Internal Medicine; PCP Internal Medicine; Visit Provider Family Medicine
PROC: 0DJ08ZZ Inspection of Upper Intestinal Tract, Via Natural or Artificial Opening Endoscopic (ICD-10-PCS; CPT 43235; principal; 2020-04-23 14:10)
DX: C78.7 Secondary malignant neoplasm of liver and intrahepatic bile duct (principal); A41.9 Sepsis, unspecified organism; D68.8 Other specified coagulation defects; E44.1 Mild protein-calorie malnutrition; K22.10 Ulcer of esophagus without bleeding; K21.9 Gastro-esophageal reflux disease without esophagitis; G20 Parkinson's disease; F02.80 Dementia in other diseases classified elsewhere, unspecified severity, without behavioral disturbance, psychotic disturbance, mood disturbance, and anxiety; E87.5 Hyperkalemia; J45.909 Unspecified asthma, uncomplicated; D64.9 Anemia, unspecified; N40.0 Benign prostatic hyperplasia without lower urinary tract symptoms; E78.5 Hyperlipidemia, unspecified; D50.0 Iron deficiency anemia secondary to blood loss (chronic); Z68.23 Body mass index [BMI] 23.0-23.9, adult; D72.829 Elevated white blood cell count, unspecified; L89.152 Pressure ulcer of sacral region, stage 2; K29.00 Acute gastritis without bleeding; K44.9 Diaphragmatic hernia without obstruction or gangrene; K29.80 Duodenitis without bleeding; Z79.82 Long term (current) use of aspirin; Z79.891 Long term (current) use of opiate analgesic; Z79.899 Other long term (current) drug therapy; Z66 Do not resuscitate
CPT/HCPCS: 10009; 36415; 47000; 71045; 71260; 74177; 74183; 80048; 80051; 80076; 81001; 82105; 82272; 82378; 82565; 82945; 82947; 83605; 83615; 83690; 83735; 84157; 84484; 84520; 85014; 85018; 85025; 85027; 85060; 85610; 86301; 86850; 86900; 86901; 86920; 86923; 87040; 87070; 87205; 87529; 88172; 88173; 88177; 88305; 88307; 88341; 88342; 89051; 93005; 93010; 96365; 96375; 97162; 99152; 99153; 99291; A9585; J0696; J1956; J2060; J2250; J2270; J2543; J3010; J3430; P9016; Q9967